=== PATIENT | male | born 1985 | race African-American/Black ===

== ENCOUNTER 2024-07-30 12:38 | Emergency (ER) | payer OTHER, SELFPAY ==
[2024-07-30 12:40] VITALS: BP 166/94
[2024-07-30 13:05] LABS: % Basophils 0.7 % (0-2); % Eosinophils 2.5 % (0-6); % Immature Granulocytes 0.3 % (0-0.5); % Lymphocytes 29.9 % (20.5-51.1); % Monocytes 5.9 % (1.7-9.3); % Neutrophils 60.7 % (42.2-75.2); Absolute Basophils 0.1 10^3/uL (0-0.2); Absolute Eosinophils 0.2 10^3/uL (0-0.7); Absolute Monocytes 0.4 10^3/uL (0.1-0.6); Absolute Neutrophils 4.1 10^3/uL (1.4-6.5); Hematocrit 39.9 % (39.0-52.0); Hemoglobin 13.3 g/dL (13.0-18.0); Mean Corp Hgb Conc. 33.3 g/dL (33.0-37.0); Mean Corpuscular Hgb 27.7 pg (27.0-31.0); Mean Platelet Volume 9.2 fL (7.4-10.4); Nucleated Red Blood Cells % 0 % (-); Platelet Count 326 10^3/uL (130-400); Red Blood Cell Count 4.81 10^6/uL (4.70-6.10); Red Cell Dist. Width 14.2 % (11.5-14.5); White Blood Cell Count 6.7 10^3/uL (4.8-10.8)
[2024-07-30 13:17] LABS: Blood Urea Nitrogen 14 mg/dl (9-20); Calcium 9.1 mg/dl (8.4-10.2); Carbon Dioxide 33 mmol/L (22-30); Chloride 98 mmol/L (98-107); Glucose 95 mg/dl (70-99); Potassium 4.2 mmol/L (3.5-5.1); Sodium 139 mmol/L (135-145); eGFR > 60.00
--- NOTE | 2024-07-30 16:17 | ED.GENMED ---
History of Present Illness
General
Chief Complaint: Esophageal Problem
Source: patient
Exam Limitations: none
Time Seen by Provider: 07/30/24 13:37
History of Present Illness
History of Present Illness:
39yoM with a history of hypertension and bipolar disorder presenting for evaluation of a foreign body sensation in the throat. Patient was eating popcorn 2 weeks ago and he immediately felt like a popcorn kernel got stuck in the back of her throat
after swallowing. Symptoms have been persistent since then. He was seen by ENT last week in the office and a bedside scope was performed. He was reportedly told that everything looked normal and that he likely had a scratch. It was recommended that
he start taking Prilosec. He coughed yesterday and felt like the kernel dislodged and moved to a new spot in the back of his throat. He feels like he has to gag because of the sensation. He is able to tolerate both liquid and solid intake. He had
one episode of vomiting today but otherwise denies any regurgitation. No shortness of breath.
Past History
Past History
ED Past Surgical History: Cardiac (cath)
Social History
Drug: Marijuana
Personal:
Living: with family
Phy Exam
General Physical Exam
General Presentation: well appearing and no apparent distress
General age: appears stated age
General Skin: warm and dry
General Habitus: normal
General Mental: alert
ENT Exam
ENT Exam: neck supple, normocephalic and other (Posterior oropharynx appears normal. Airway patent. Normal phonation. Tolerating oral secretions without difficulty. )
Pulmonary Exam
Pulmonary Exam: lungs clear, no respiratory distress, no rales, no crackles and no rhonchi
Neurological Exam
Neurological Exam: alert
Lis Coma Scale
Eye Opening: Spontaneous
Verbal Response: Oriented
Motor Response: Obeys Commands
GCS Total Score: 15
Skin Exam
Skin Exam: normal color and warm/dry
Psychiatric Exam
Psychiatric Exam: normal mood/affect
Course
Orders/Labs/Results
Orders:
Orders
07/30/24
BMP [Basic Metabolic Panel] Urgent
Complete Blood Count/With Diff Urgent
07/30/24 13:45
CT Neck W/o Iv Contrast Urgent
Comment:
Reason For Exam: foreign body sensation of throat
Viscous Lidocaine 2% [Xylocaine Viscous Cup] 15 ml PO ONCE ONE
07/30/24 17:05
Dexamethasone Pf [Decadron] 10 mg PO NOW STA
Abnormal Lab Results
07/30/24
Unknown
Carbon Dioxide 33 H mmol/L
()
07/30/24 Unknown
07/30/24 Unknown
Vital Signs
Initial and Last Documented VS:
Initial Vital Signs
Temp Pulse Resp BP Pulse Ox
98.2 F 67 18 166/94 98
07/30/24 12:40 07/30/24 12:40 07/30/24 12:40 07/30/24 12:40 07/30/24 12:40
Last Documented Vital Signs
Temp Pulse Resp BP Pulse Ox
98.2 F 70 18 160/89 98
07/30/24 12:40 07/30/24 17:27 07/30/24 17:27 07/30/24 17:27 07/30/24 17:27
MDM/Problems Addressed
Differential Diagnosis Includes:
39yoM here with a foreign body sensation in his throat x 2 weeks after eating popcorn. Believes he has a popcorn kernel stuck in the back of his throat. Was seen by ENT last week and scope was reportedly normal. Feels like symptoms are worse after
coughing yesterday. He is hypertensive with otherwise normal vitals. Airway is patent on exam and phonation is normal. Posterior oropharynx appears normal. Differential diagnosis includes but is not limited to: foreign body, scratch, GERD
Initial ED plan: Basic labs obtained in triage which are normal. Will obtain CT neck and trial viscous lidocaine for symptoms.
*Critical Care Note
Total Time (30-74mins, 75-104mins- exclusive of procedures): Not Applicable
Update Note
Update Note:
Patient refused viscous lidocaine. Patient signed out to Saundra SORIANO prior to CT results. Patient eating crackers and drinking water throughout ED stay without difficulty. Will plan for outpatient ENT f/u pending CT results.
ED Attending Note
-
Portions of this chart may have been created with voice recognition software.� Occasional wrong word or��sound alike� substitutions may have occurred due to the inherent limitations of voice recognition software.
Discharge Plan
Departure
Patient Disposition: Home (Routine Discharge)
Date of Disposition: 07/30/24
Time of Disposition: 17:05
Patient with high blood pressure during this ER visit?: Yes
Discharge Problem:
Foreign body sensation in throat
Instructions: Sore throat in adults - ED discharge instructions
Referrals:
Bhavesh Lowery MD [Active] -
UNKNOWN - PT DOES,NOT KNOW [Family Provider] -
Activity Restrictions/Additional Instructions:
Drink plenty of fluids.
Please call ENT on Friday to schedule a follow-up appointment. Return to the ER with any worsening symptoms or inability to swallow liquids.
Interventions
Interventions:
*Risk Screen - Suicide Last Done: 07/30/24 17:27
*General Assessment Last Done: 07/30/24 12:40
*Neglect/Abuse Screening Last Done: 07/30/24 15:46
*ED COVID-19 Vaccine History Last Done: 07/30/24 15:46
*Nursing Disposition Last Done: 07/30/24 17:27
XM-[id number]-Nbjcxzjjwm Assessment Last Done: 07/30/24 15:46
ED-EENT Assessment Last Done: 07/30/24 15:46
Discharge Date and Time
Discharge Date/Time: 07/30/24 17:28
Print Language: VINCENTIAN
[2024-07-30] MEDS: DECADRON 10 MG PO (17:17)
[2024-07-30 17:27] VITALS: BP 160/89
== END 2024-07-30 17:28 | disposition home or self-care (01) ==
LOC: EMR 12:38
PROVIDERS: Emergency Medicine; EMERGENCY PHYSICIAN Student in an Organized Health Care Education/Training Program
DX: R09.A2 Foreign body sensation, throat (principal); I10 Essential (primary) hypertension; F31.9 Bipolar disorder, unspecified
CPT/HCPCS: 99284; 70490; 80048; 85025

== ENCOUNTER → 2025-04-20 15:34 | Outpatient (REF) | payer OTHER, SELFPAY | LOC: HWRAD 15:34 | PROVIDERS: ATTENDING PHYSICIAN Specialist; FAMILY PHYSICIAN Family Medicine | DX: R10.11 Right upper quadrant pain (principal) | CPT/HCPCS: 76700 ==